=== PATIENT | male | born 1975 | race African-American/Black ===

== ENCOUNTER 2023-06-09 14:37 | Inpatient (IN) ==
[2023-06-09] MEDS: Propofol 10 mg/ml 100 ML BTL 1,000 MG/100 ML BTL IV SCH ×3 (16:45→22:30)
[2023-06-09] MEDS ORDERED: fentaNYL 100 mcg/2 ml 50 MCG/ML VIAL IV SLOW PU PRN ×2 (17:17→19:08)
[2023-06-09] MEDS ORDERED: fentaNYL 100 mcg/2 ml 50 MCG/ML VIAL ONE (17:17)
[2023-06-09] MEDS ORDERED: Piperacillin/Tazobac 3.375 BAG 3.375 GM/100 ML BAG IV ONE (17:40)
[2023-06-09] MEDS ORDERED: Vancomycin per Pharmacy 1 EA NOTE FOLLOW UP PRN (17:43)
[2023-06-09] MEDS ORDERED: Vancomycin 2,000 MG in NS 0.9% 500 ml BAG 500 ML IVPB ONE (18:00)
[2023-06-09] MEDS ORDERED: Propofol 10 mg/ml 100 ML BTL 1,000 MG/100 ML BTL IV SCH (18:00)
[2023-06-09] MEDS ORDERED: Norepinephrine 16MCG/ML BAGD5W 4,000 MCG/250 ML BAG IV SCH ×2 (18:00)
[2023-06-09] MEDS ORDERED: Zosyn per Pharmacy NOTE FOLLOW UP SCH (18:00)
[2023-06-09 19:50] LABS: Resp Rate 16
[2023-06-09 19:53] LABS: PCO2 Arterial 39 mmHg (35-45); PO2 Arterial 418 mmHg (80-100)
[2023-06-09 19:56] LABS: Urine Appearance Clear; Urine Bilirubin Negative (Negative); Urine Blood 1+ (Negative); Urine Color Yellow; Urine Glucose Negative (Negative); Urine Ketones Negative (Negative); Urine Nitrite Negative (Negative); Urine Protein 1+(30 mg/dL) (Negative); Urine Specific Gravity 1.013 (1.002-1.030); Urine Urobilinogen Negative (Negative)
[2023-06-09] MEDS ORDERED: fentaNYL INFUSION 50 mcg/mL VL 2,500 MCG/50 ML VIAL IV SCH (20:00)
[2023-06-09] MEDS: Pantoprazole VIAL 40 MG VIAL IV SCH (20:17)
[2023-06-09] MEDS: Enoxaparin 40 MG/0.4 ML SYR SUBCUT SCH (20:17)
[2023-06-09 20:31] LABS: Urine Benzodiazepine Screen Presumptive Positive (None Detect); Urine Cannabinoids Screen Presumptive Positive (None Detect); Urine Opiates Screen None Detected (None Detect)
[2023-06-09 20:38] LABS: Urine Bacteria Absent (Absent); Urine Red Blood Cell 1+(3-5/hpf) (Absent); Urine White Blood Cell Absent (Absent)
[2023-06-09 22:47] LABS: Hematocrit 27.6 % (38-53); Hemoglobin 8.5 g/dL (13.2-16.3); Mean Corpuscular Hemoglobin 25.3 pg (27-33); Mean Corpuscular Hgb Conc 30.8 g/dL (31-36); Mean Platelet Volume 7.4 fL (7.5-11.2); Platelet Count 447 10^3/uL (150-450); Red Blood Count 3.37 10^6/uL (4.06-5.63); White Blood Count 7.9 10^3/uL (3.6-10.2)
[2023-06-09 22:53] LABS: INR 1.14 (0.88-1.18)
[2023-06-09 22:58] LABS: Albumin 2.8 g/dL (3.2-5.2); Albumin/Globulin Ratio 0.9 (1-3); Calcium 9.4 mg/dL (8.6-10.3); Creatinine, Serum 0.88 mg/dL (0.67-1.17); Potassium 4.1 mmol/L (3.5-5.0); Total Bilirubin 0.2 mg/dL (0.2-1.0); Total Protein 5.8 g/dL (6.4-8.9); eGFR CKD-EPI 106.7 (>60)
[2023-06-09 23:13] LABS: ABS Lymphocytes 4.6 10^3/uL (1.0-4.8); ABS Monocytes 1.7 10^3/uL (0.0-1.1); ABS Neutrophils 1.5 10^3/uL (1.5-7.6); ABS Nucleated RBC 0.03 10^3/ul; Eosinophil % 0.5 %; Lymphocyte % 58.2 %; Nucleated Red Blood Cells % 0.3 /100 WBC (0.0-0.4)
[2023-06-09] MEDS: Chlorhexidine MOUTHWASH 0.12% 15 ML UDC SWISH SPIT SCH (23:31)
[2023-06-10] MEDS: ZOSYN 3.375 GM Q8H per EXTENDED INFUSION IV SCH ×3 (01:01→17:24)
[2023-06-10] MEDS: Chlorhexidine MOUTHWASH 0.12% 15 ML UDC SWISH SPIT SCH ×3 (01:11→11:55)
[2023-06-10] MEDS: Propofol 10 mg/ml 100 ML BTL 1,000 MG/100 ML BTL IV SCH ×3 (01:28→08:32)
[2023-06-10 04:37] LABS: ABS Lymphocytes 1.6 10^3/uL (1.0-4.8); ABS Monocytes 1.3 10^3/uL (0.0-1.1); ABS Neutrophils 1.4 10^3/uL (1.5-7.6); ABS Nucleated RBC 0.01 10^3/ul; Hematocrit 24.6 % (38-53); Hemoglobin 7.9 g/dL (13.2-16.3); Lymphocyte % 36.1 %; Mean Corpuscular Hemoglobin 25.6 pg (27-33); Mean Corpuscular Volume 80.2 fL (80-97); Mean Platelet Volume 7.5 fL (7.5-11.2); Nucleated Red Blood Cells % 0.3 /100 WBC (0.0-0.4); Platelet Count 414 10^3/uL (150-450); Red Blood Count 3.06 10^6/uL (4.06-5.63); Red Cell Distribution Width 17.2 % (12-17); White Blood Count 4.4 10^3/uL (3.6-10.2)
[2023-06-10 04:52] LABS: Albumin 2.6 g/dL (3.2-5.2); Albumin/Globulin Ratio 0.9 (1-3); Calcium 9.2 mg/dL (8.6-10.3); Creatinine, Serum 1.08 mg/dL (0.67-1.17); Magnesium 1.4 mg/dL (1.9-2.7); Potassium 4.2 mmol/L (3.5-5.0); Total Bilirubin 0.2 mg/dL (0.2-1.0); Total Protein 5.6 g/dL (6.4-8.9); eGFR CKD-EPI 85.2 (>60)
[2023-06-10] MEDS: Vancomycin 1,250 MG in NS 0.9% 250 ml 250 ML IVPB SCH ×3 (06:11→22:02)
[2023-06-10] MEDS ORDERED: Magnesium Sulf 4 GM/100 ML IV 4,000 MG/100 ML BAG IVPB ONE (08:36)
[2023-06-10] MEDS ORDERED: Succinylcholine 200 mg VIAL 20 mg/ml 10 ml VIAL (200 mg) ONE (09:45)
[2023-06-10] MEDS ORDERED: Rocuronium 50 mg VIAL 10 mg/ml 5 ml VIAL (50 mg) ONE (09:46)
[2023-06-10] MEDS ORDERED: fentaNYL 250 mcg/5 ml 50 MCG/ML 5 ml VIAL (250 MCG) ONE (09:47)
[2023-06-10] MEDS ORDERED: fentaNYL 100 mcg/2 ml 50 MCG/ML VIAL IV SLOW PU ONE ×5 (09:47→11:15)
[2023-06-10] MEDS ORDERED: Lidocaine 1% VIAL 10 MG/ML VIAL 30 ML ONE (10:46)
[2023-06-10] MEDS ORDERED: Iohexol 350 (CONTRAST) 500 ML MDV IV ONE (14:22)
[2023-06-10] MEDS: Enoxaparin 40 MG/0.4 ML SYR SUBCUT SCH (19:36)
[2023-06-10] MEDS: Pantoprazole VIAL 40 MG VIAL IV SCH (19:37)
[2023-06-10] MEDS: Albuterol HFA INHALER 8 gm MDI INH PRN (21:22)
[2023-06-10] MEDS ORDERED: Atropine 0.1 MG/ML 10 ml SYR (1 mg) ONE (22:15)
[2023-06-10] MEDS ORDERED: EPINEPHrine SYR 0.1MG/ML 10 ml SYRINGE IV ONE (22:15)
[2023-06-11] MEDS: ZOSYN 3.375 GM Q8H per EXTENDED INFUSION IV SCH ×2 (00:08→08:59)
[2023-06-11 05:08] LABS: Hematocrit 24.2 % (38-53); Hemoglobin 7.9 g/dL (13.2-16.3); Mean Corpuscular Hemoglobin 25.8 pg (27-33); Mean Corpuscular Hgb Conc 32.5 g/dL (31-36); Mean Corpuscular Volume 79.3 fL (80-97); Mean Platelet Volume 7.2 fL (7.5-11.2); Platelet Count 422 10^3/uL (150-450); Red Blood Count 3.05 10^6/uL (4.06-5.63); Red Cell Distribution Width 17.2 % (12-17); White Blood Count 4.4 10^3/uL (3.6-10.2)
[2023-06-11 05:23] LABS: Calcium 9.3 mg/dL (8.6-10.3); Creatinine, Serum 1.35 mg/dL (0.67-1.17); Potassium 3.7 mmol/L (3.5-5.0); eGFR CKD-EPI 65.2 (>60)
[2023-06-11] MEDS ORDERED: Vancomycin Trough Check NOTE FOLLOW UP ONE (05:30)
[2023-06-11 05:46] LABS: Vancomycin Trough 28.3 mcg/mL
[2023-06-11] MEDS: Vancomycin 1,250 MG in NS 0.9% 250 ml 250 ML IVPB SCH (06:21)
[2023-06-11 06:53] LABS: Creatinine, Serum 1.35 mg/dL (0.67-1.17); eGFR CKD-EPI 65.2 (>60)
[2023-06-11] MEDS: guaiFENesin 100 mg/5 ml LIQ unit dose cup PO PRN ×2 (10:14→19:16)
[2023-06-11] MEDS: Acetaminophen IV 1 GM/100ML 1,000 MG/100 ML BAG IV PRN ×2 (10:27→22:12)
[2023-06-11] MEDS: Polyethylene Glycol 3350 17 GM PACKET PO PRN (14:17)
[2023-06-11] MEDS: Pantoprazole VIAL 40 MG VIAL IV SCH (19:16)
[2023-06-11] MEDS: Enoxaparin 40 MG/0.4 ML SYR SUBCUT SCH (19:16)
[2023-06-12 05:41] LABS: ABS Lymphocytes 1.4 10^3/uL (1.0-4.8); ABS Monocytes 1.2 10^3/uL (0.0-1.1); ABS Neutrophils 3.5 10^3/uL (1.5-7.6); ABS Nucleated RBC 0.01 10^3/ul; Eosinophil % 0.6 %; Hematocrit 25.7 % (38-53); Hemoglobin 8.3 g/dL (13.2-16.3); Lymphocyte % 23.3 %; Mean Corpuscular Hemoglobin 25.5 pg (27-33); Mean Corpuscular Hgb Conc 32.4 g/dL (31-36); Mean Corpuscular Volume 78.7 fL (80-97); Mean Platelet Volume 7.1 fL (7.5-11.2); Nucleated Red Blood Cells % 0.2 /100 WBC (0.0-0.4); Platelet Count 463 10^3/uL (150-450); Red Blood Count 3.27 10^6/uL (4.06-5.63); Red Cell Distribution Width 17.7 % (12-17); White Blood Count 6.2 10^3/uL (3.6-10.2)
[2023-06-12 05:59] LABS: Creatinine, Serum 1.07 mg/dL (0.67-1.17); Magnesium 1.6 mg/dL (1.9-2.7); Potassium 3.7 mmol/L (3.5-5.0); eGFR CKD-EPI 86.1 (>60)
[2023-06-12] MEDS ORDERED: Vancomycin Random Level NOTE FOLLOW UP ONE (06:00)
[2023-06-12] MEDS: Acetaminophen IV 1 GM/100ML 1,000 MG/100 ML BAG IV PRN ×3 (06:03→23:59)
[2023-06-12] MEDS ORDERED: Magnesium Sulfate 2 gm BAG 2 GM/50 ML BAG IVPB ONE (07:20)
[2023-06-12] MEDS: Albuterol HFA INHALER 8 gm MDI INH PRN (08:36)
[2023-06-12] MEDS: Pantoprazole VIAL 40 MG VIAL IV SCH (20:12)
[2023-06-12] MEDS: Enoxaparin 40 MG/0.4 ML SYR SUBCUT SCH (20:12)
[2023-06-13] MEDS: guaiFENesin 100 mg/5 ml LIQ unit dose cup PO PRN ×2 (00:06→06:14)
[2023-06-13] MEDS ORDERED: Magnesium Sulfate IV 3 GM in NS 0.9% 100 ml BAG 100 ML IVPB ONE (07:22)
[2023-06-13 08:14] LABS: Phosphorus 3.3 mg/dL (2.5-5.0); Uric Acid 5.2 mg/dL (4.4-7.6)
[2023-06-13] MEDS: Acetaminophen IV 1 GM/100ML 1,000 MG/100 ML BAG IV PRN ×2 (10:13→23:15)
[2023-06-13] MEDS ORDERED: Ondansetron ODT 4 mg TAB 4 MG TAB PO PRN (10:38)
[2023-06-13] MEDS: SPIRIVA Respimat (tiotropium) 2.5 mcg/inh Inhaler INH SCH (13:26)
[2023-06-13] MEDS: Mometasone 220 MCG MDI INH SCH (19:22)
[2023-06-13] MEDS: Enoxaparin 40 MG/0.4 ML SYR SUBCUT SCH (21:36)
[2023-06-13] MEDS: Pantoprazole VIAL 40 MG VIAL IV SCH (21:37)
[2023-06-14] MEDS: guaiFENesin 100 mg/5 ml LIQ unit dose cup PO PRN ×2 (04:05→22:41)
[2023-06-14] MEDS: SPIRIVA Respimat (tiotropium) 2.5 mcg/inh Inhaler INH SCH (07:11)
[2023-06-14] MEDS: DULoxetine DR 60 mg CAP PO SCH (08:59)
[2023-06-14] MEDS: Acetaminophen IV 1 GM/100ML 1,000 MG/100 ML BAG IV PRN (10:46)
[2023-06-14] MEDS: Mometasone 220 MCG MDI INH SCH (19:38)
[2023-06-14] MEDS: Enoxaparin 40 MG/0.4 ML SYR SUBCUT SCH (20:04)
[2023-06-14] MEDS: Pantoprazole VIAL 40 MG VIAL IV SCH (20:05)
[2023-06-15 06:19] LABS: Hematocrit 27.3 % (38-53); Hemoglobin 8.6 g/dL (13.2-16.3); Mean Corpuscular Hemoglobin 24.8 pg (27-33); Mean Corpuscular Hgb Conc 31.6 g/dL (31-36); Mean Corpuscular Volume 78.5 fL (80-97); Platelet Count 567 10^3/uL (150-450); Red Blood Count 3.47 10^6/uL (4.06-5.63); Red Cell Distribution Width 17.8 % (12-17); White Blood Count 12.5 10^3/uL (3.6-10.2)
[2023-06-15 06:37] LABS: Calcium 10.7 mg/dL (8.6-10.3); Creatinine, Serum 0.86 mg/dL (0.67-1.17); Potassium 4.4 mmol/L (3.5-5.0); eGFR CKD-EPI 107.5 (>60)
[2023-06-15 06:57] LABS: ABS Basophils 0.1 10^3/uL (0.0-0.1); ABS Eosinophils 0.1 10^3/uL (0.0-0.5); ABS Lymphocytes 1.8 10^3/uL (1.0-4.8); ABS Monocytes 1.8 10^3/uL (0.0-1.1); ABS Neutrophils 8.8 10^3/uL (1.5-7.6); ABS Nucleated RBC 0.01 10^3/ul; Eosinophil % 0.5 %; Lymphocyte % 14.6 %; Nucleated Red Blood Cells % 0.1 /100 WBC (0.0-0.4)
[2023-06-15] MEDS: SPIRIVA Respimat (tiotropium) 2.5 mcg/inh Inhaler INH SCH (06:59)
[2023-06-15] MEDS: DULoxetine DR 60 mg CAP PO SCH (08:51)
[2023-06-15] MEDS: Mometasone 220 MCG MDI INH SCH (19:28)
[2023-06-15] MEDS: Pantoprazole VIAL 40 MG VIAL IV SCH (19:53)
[2023-06-15] MEDS: Enoxaparin 40 MG/0.4 ML SYR SUBCUT SCH (19:53)
[2023-06-16 06:26] LABS: Hematocrit 26.4 % (38-53); Hemoglobin 8.4 g/dL (13.2-16.3); Mean Corpuscular Hemoglobin 24.5 pg (27-33); Mean Corpuscular Hgb Conc 31.9 g/dL (31-36); Mean Corpuscular Volume 76.8 fL (80-97); Mean Platelet Volume 6.7 fL (7.5-11.2); Platelet Count 591 10^3/uL (150-450); Red Blood Count 3.43 10^6/uL (4.06-5.63); Red Cell Distribution Width 17.8 % (12-17); White Blood Count 12.8 10^3/uL (3.6-10.2)
[2023-06-16 06:45] LABS: Calcium 10.6 mg/dL (8.6-10.3); Creatinine, Serum 0.93 mg/dL (0.67-1.17); Magnesium 1.3 mg/dL (1.9-2.7); Potassium 4.6 mmol/L (3.5-5.0); eGFR CKD-EPI 101.9 (>60)
[2023-06-16] MEDS ORDERED: Magnesium Sulfate IV 3 GM in NS 0.9% 100 ml BAG 100 ML IVPB ONE (07:13)
[2023-06-16 07:56] LABS: ABS Eosinophils 0.1 10^3/uL (0.0-0.5); ABS Lymphocytes 2.1 10^3/uL (1.0-4.8); ABS Monocytes 1.8 10^3/uL (0.0-1.1); ABS Neutrophils 8.7 10^3/uL (1.5-7.6); Eosinophil % 0.5 %; Lymphocyte % 16.7 %
[2023-06-16] MEDS: SPIRIVA Respimat (tiotropium) 2.5 mcg/inh Inhaler INH SCH (08:01)
[2023-06-16] MEDS: DULoxetine DR 60 mg CAP PO SCH (09:37)
[2023-06-16] MEDS: Albuterol/Ipratropium NEB.SOL (2.5/0.5 MG) 3 ML NEB.SOLN INH PRN ×2 (11:03→19:46)
[2023-06-16] MEDS ORDERED: Cefepime ADVAN 1 GM in NS 0.9% 50 ML 50 ML IVPB SCH (11:30)
[2023-06-16] MEDS: Cefepime 1 GM in Dextrose 1 GM/50 ML BAG IV SCH ×2 (13:06→21:27)
[2023-06-16] MEDS: Azithromycin 500 mg/250 ml NS 500 MG/250 ML BAG IVPB SCH (13:46)
[2023-06-16] MEDS: Polyethylene Glycol 3350 17 GM PACKET PO PRN (16:13)
[2023-06-16] MEDS: Enoxaparin 40 MG/0.4 ML SYR SUBCUT SCH (19:29)
[2023-06-16] MEDS: Pantoprazole VIAL 40 MG VIAL IV SCH (19:29)
[2023-06-16] MEDS: Mometasone 220 MCG MDI INH SCH (19:44)
[2023-06-17] MEDS: Albuterol/Ipratropium NEB.SOL (2.5/0.5 MG) 3 ML NEB.SOLN INH PRN ×4 (02:44→19:28)
[2023-06-17 06:20] LABS: Hematocrit 26.9 % (38-53); Hemoglobin 8.8 g/dL (13.2-16.3); Mean Corpuscular Hemoglobin 25.3 pg (27-33); Mean Corpuscular Hgb Conc 32.7 g/dL (31-36); Mean Corpuscular Volume 77.6 fL (80-97); Platelet Count 635 10^3/uL (150-450); Red Blood Count 3.47 10^6/uL (4.06-5.63); Red Cell Distribution Width 17.8 % (12-17); White Blood Count 14.5 10^3/uL (3.6-10.2)
[2023-06-17 06:22] LABS: ABS Basophils 0.1 10^3/uL (0.0-0.1); ABS Eosinophils 0.1 10^3/uL (0.0-0.5); ABS Lymphocytes 2.2 10^3/uL (1.0-4.8); ABS Monocytes 1.9 10^3/uL (0.0-1.1); ABS Neutrophils 10.3 10^3/uL (1.5-7.6); ABS Nucleated RBC 0.01 10^3/ul; Eosinophil % 0.4 %; Lymphocyte % 15.2 %; Nucleated Red Blood Cells % 0.1 /100 WBC (0.0-0.4)
[2023-06-17 06:29] LABS: Calcium 10.8 mg/dL (8.6-10.3); Creatinine, Serum 0.85 mg/dL (0.67-1.17); Potassium 4.5 mmol/L (3.5-5.0); eGFR CKD-EPI 107.9 (>60)
[2023-06-17 08:01] LABS: Magnesium 1.6 mg/dL (1.9-2.7)
[2023-06-17] MEDS: SPIRIVA Respimat (tiotropium) 2.5 mcg/inh Inhaler INH SCH (08:02)
[2023-06-17] MEDS: Cefepime 1 GM in Dextrose 1 GM/50 ML BAG IV SCH ×2 (08:05→20:35)
[2023-06-17] MEDS: DULoxetine DR 60 mg CAP PO SCH (08:06)
[2023-06-17] MEDS: Azithromycin 500 mg/250 ml NS 500 MG/250 ML BAG IVPB SCH (11:02)
[2023-06-17] MEDS ORDERED: Magnesium Sulfate IV 3 GM in NS 0.9% 100 ml BAG 100 ML IVPB ONE (16:16)
[2023-06-17] MEDS: Mometasone 220 MCG MDI INH SCH (19:27)
[2023-06-17] MEDS: guaiFENesin 100 mg/5 ml LIQ unit dose cup PO PRN (20:31)
[2023-06-17] MEDS: Pantoprazole VIAL 40 MG VIAL IV SCH (20:31)
[2023-06-17] MEDS: Enoxaparin 40 MG/0.4 ML SYR SUBCUT SCH (20:31)
[2023-06-18] MEDS: Albuterol/Ipratropium NEB.SOL (2.5/0.5 MG) 3 ML NEB.SOLN INH PRN ×4 (04:11→22:55)
[2023-06-18 05:49] LABS: Hematocrit 26.1 % (38-53); Hemoglobin 8.5 g/dL (13.2-16.3); Mean Corpuscular Hgb Conc 32.6 g/dL (31-36); Mean Corpuscular Volume 76.7 fL (80-97); Mean Platelet Volume 6.7 fL (7.5-11.2); Platelet Count 647 10^3/uL (150-450); Red Blood Count 3.41 10^6/uL (4.06-5.63); Red Cell Distribution Width 17.3 % (12-17); White Blood Count 15.6 10^3/uL (3.6-10.2)
[2023-06-18 06:06] LABS: Albumin 3.1 g/dL (3.2-5.2); Albumin/Globulin Ratio 0.9 (1-3); Calcium 11.1 mg/dL (8.6-10.3); Creatinine, Serum 0.77 mg/dL (0.67-1.17); Globulin 3.6 g/dL (2-4); Magnesium 1.8 mg/dL (1.9-2.7); Phosphorus 3.4 mg/dL (2.5-5.0); Potassium 4.6 mmol/L (3.5-5.0); Total Bilirubin 0.2 mg/dL (0.2-1.0); Total Protein 6.7 g/dL (6.4-8.9); eGFR CKD-EPI 111.1 (>60)
[2023-06-18] MEDS: SPIRIVA Respimat (tiotropium) 2.5 mcg/inh Inhaler INH SCH (07:28)
[2023-06-18] MEDS ORDERED: Magnesium Sulfate 2 gm BAG 2 GM/50 ML BAG IVPB ONE (08:15)
[2023-06-18] MEDS: DULoxetine DR 60 mg CAP PO SCH (08:49)
[2023-06-18] MEDS: Polyethylene Glycol 3350 17 GM PACKET PO SCH (08:50)
[2023-06-18] MEDS: HYDROmorphone 1 MG/1 ML SYRINGE IV SLOW PU PRN ×3 (08:50→22:45)
[2023-06-18] MEDS: Cefepime 1 GM in Dextrose 1 GM/50 ML BAG IV SCH ×2 (09:03→20:46)
[2023-06-18] MEDS: Azithromycin 500 mg/250 ml NS 500 MG/250 ML BAG IVPB SCH (11:31)
[2023-06-18] MEDS: Mometasone 220 MCG MDI INH SCH (20:18)
[2023-06-18] MEDS: Pantoprazole VIAL 40 MG VIAL IV SCH (20:40)
[2023-06-18] MEDS: guaiFENesin 100 mg/5 ml LIQ unit dose cup PO PRN (20:40)
[2023-06-18] MEDS: Enoxaparin 40 MG/0.4 ML SYR SUBCUT SCH (20:40)
[2023-06-19] MEDS: HYDROmorphone 1 MG/1 ML SYRINGE IV SLOW PU PRN ×6 (02:04→20:30)
[2023-06-19 06:10] LABS: Albumin 3.3 g/dL (3.2-5.2); Albumin/Globulin Ratio 0.8 (1-3); Calcium 11.5 mg/dL (8.6-10.3); Creatinine, Serum 0.82 mg/dL (0.67-1.17); Globulin 3.9 g/dL (2-4); Magnesium 1.6 mg/dL (1.9-2.7); Phosphorus 3.1 mg/dL (2.5-5.0); Potassium 4.7 mmol/L (3.5-5.0); Total Bilirubin 0.2 mg/dL (0.2-1.0); Total Protein 7.2 g/dL (6.4-8.9)
[2023-06-19] MEDS: SPIRIVA Respimat (tiotropium) 2.5 mcg/inh Inhaler INH SCH (08:12)
[2023-06-19] MEDS: Albuterol/Ipratropium NEB.SOL (2.5/0.5 MG) 3 ML NEB.SOLN INH PRN ×2 (08:12→13:31)
[2023-06-19] MEDS: Cefepime 1 GM in Dextrose 1 GM/50 ML BAG IV SCH ×2 (10:36→20:37)
[2023-06-19] MEDS: DULoxetine DR 60 mg CAP PO SCH (10:39)
[2023-06-19] MEDS: Polyethylene Glycol 3350 17 GM PACKET PO SCH (10:39)
[2023-06-19] MEDS: Azithromycin 500 mg/250 ml NS 500 MG/250 ML BAG IVPB SCH (13:18)
[2023-06-19] MEDS ORDERED: Magnesium Sulfate IV 3 GM in NS 0.9% 100 ml BAG 100 ML IVPB ONE (13:33)
[2023-06-19 15:28] LABS: Hematocrit 26.4 % (38-53); Hemoglobin 8.2 g/dL (13.2-16.3); Mean Corpuscular Hemoglobin 24.1 pg (27-33); Mean Corpuscular Hgb Conc 31.1 g/dL (31-36); Mean Corpuscular Volume 77.5 fL (80-97); Mean Platelet Volume 6.7 fL (7.5-11.2); Platelet Count 674 10^3/uL (150-450); Red Blood Count 3.41 10^6/uL (4.06-5.63)
[2023-06-19 17:04] LABS: ABS Eosinophils 0.1 10^3/uL (0.0-0.5); ABS Lymphocytes 2.2 10^3/uL (1.0-4.8); ABS Monocytes 2.1 10^3/uL (0.0-1.1); ABS Neutrophils 14.5 10^3/uL (1.5-7.6); ABS Nucleated RBC 0.01 10^3/ul; Eosinophil % 0.7 %; Lymphocyte % 11.6 %; Nucleated Red Blood Cells % 0.1 /100 WBC (0.0-0.4)
[2023-06-19] MEDS: Mometasone 220 MCG MDI INH SCH (19:19)
[2023-06-19] MEDS: Enoxaparin 40 MG/0.4 ML SYR SUBCUT SCH (20:29)
[2023-06-19] MEDS: Pantoprazole VIAL 40 MG VIAL IV SCH (20:30)
[2023-06-19] MEDS ORDERED: Iohexol 300 (CONTRAST) 10 ML SDV IV ONE (21:32)
[2023-06-20] MEDS: HYDROmorphone 1 MG/1 ML SYRINGE IV SLOW PU PRN ×5 (00:55→20:22)
[2023-06-20] MEDS: Albuterol/Ipratropium NEB.SOL (2.5/0.5 MG) 3 ML NEB.SOLN INH PRN ×3 (02:19→23:40)
[2023-06-20] MEDS: SPIRIVA Respimat (tiotropium) 2.5 mcg/inh Inhaler INH SCH (08:39)
[2023-06-20] MEDS: Polyethylene Glycol 3350 17 GM PACKET PO SCH (10:34)
[2023-06-20] MEDS: Cefepime 1 GM in Dextrose 1 GM/50 ML BAG IV SCH (10:35)
[2023-06-20] MEDS: DULoxetine DR 60 mg CAP PO SCH (10:35)
[2023-06-20] MEDS: Azithromycin 500 mg/250 ml NS 500 MG/250 ML BAG IVPB SCH (12:30)
[2023-06-20] MEDS: Mometasone 220 MCG MDI INH SCH (19:36)
[2023-06-20] MEDS: Enoxaparin 40 MG/0.4 ML SYR SUBCUT SCH (20:21)
[2023-06-20] MEDS: Pantoprazole VIAL 40 MG VIAL IV SCH (20:22)
[2023-06-21] MEDS: HYDROmorphone 1 MG/1 ML SYRINGE IV SLOW PU PRN ×6 (01:36→21:34)
[2023-06-21 05:47] LABS: Hematocrit 26.5 % (38-53); Hemoglobin 8.6 g/dL (13.2-16.3); Mean Corpuscular Hemoglobin 24.9 pg (27-33); Mean Corpuscular Hgb Conc 32.4 g/dL (31-36); Mean Corpuscular Volume 76.9 fL (80-97); Mean Platelet Volume 6.2 fL (7.5-11.2); Platelet Count 701 10^3/uL (150-450); Red Blood Count 3.44 10^6/uL (4.06-5.63); Red Cell Distribution Width 17.9 % (12-17); White Blood Count 17.2 10^3/uL (3.6-10.2)
[2023-06-21 05:48] LABS: ABS Basophils 0.1 10^3/uL (0.0-0.1); ABS Eosinophils 0.2 10^3/uL (0.0-0.5); ABS Lymphocytes 2.2 10^3/uL (1.0-4.8); ABS Monocytes 1.7 10^3/uL (0.0-1.1); ABS Neutrophils 13.1 10^3/uL (1.5-7.6); ABS Nucleated RBC 0.01 10^3/ul; Eosinophil % 0.9 %; Lymphocyte % 12.9 %
[2023-06-21 06:12] LABS: Calcium 11.1 mg/dL (8.6-10.3); Creatinine, Serum 0.85 mg/dL (0.67-1.17); Magnesium 1.5 mg/dL (1.9-2.7); Potassium 4.8 mmol/L (3.5-5.0); Uric Acid 4.7 mg/dL (4.4-7.6); eGFR CKD-EPI 107.9 (>60)
[2023-06-21] MEDS: SPIRIVA Respimat (tiotropium) 2.5 mcg/inh Inhaler INH SCH (07:04)
[2023-06-21 07:46] LABS: Phosphorus 3.2 mg/dL (2.5-5.0)
[2023-06-21] MEDS ORDERED: Magnesium Sulf 4 GM/100 ML IV 4,000 MG/100 ML BAG IVPB ONE (08:00)
[2023-06-21] MEDS: DULoxetine DR 60 mg CAP PO SCH (08:15)
[2023-06-21] MEDS: Polyethylene Glycol 3350 17 GM PACKET PO SCH (08:17)
[2023-06-21] MEDS: Albuterol/Ipratropium NEB.SOL (2.5/0.5 MG) 3 ML NEB.SOLN INH PRN ×2 (16:43→22:06)
[2023-06-21] MEDS: Mometasone 220 MCG MDI INH SCH (19:14)
[2023-06-21] MEDS: Pantoprazole VIAL 40 MG VIAL IV SCH (20:13)
[2023-06-21] MEDS: Enoxaparin 40 MG/0.4 ML SYR SUBCUT SCH (20:13)
[2023-06-21] MEDS: oxyCODONE SR 15 mg TAB PO SCH (20:13)
[2023-06-22] MEDS: HYDROmorphone 1 MG/1 ML SYRINGE IV SLOW PU PRN ×4 (01:14→21:25)
[2023-06-22] MEDS: SPIRIVA Respimat (tiotropium) 2.5 mcg/inh Inhaler INH SCH (07:17)
[2023-06-22] MEDS: Albuterol/Ipratropium NEB.SOL (2.5/0.5 MG) 3 ML NEB.SOLN INH PRN ×2 (07:17→20:21)
[2023-06-22 07:43] LABS: ABS Basophils 0.1 10^3/uL (0.0-0.1); ABS Eosinophils 0.2 10^3/uL (0.0-0.5); ABS Lymphocytes 1.6 10^3/uL (1.0-4.8); ABS Monocytes 1.5 10^3/uL (0.0-1.1); ABS Neutrophils 14.8 10^3/uL (1.5-7.6); Eosinophil % 0.9 %; Hematocrit 25.5 % (38-53); Lymphocyte % 8.7 %; Mean Corpuscular Hemoglobin 24.2 pg (27-33); Mean Corpuscular Hgb Conc 31.4 g/dL (31-36); Mean Corpuscular Volume 77.1 fL (80-97); Mean Platelet Volume 6.2 fL (7.5-11.2); Platelet Count 680 10^3/uL (150-450); Red Blood Count 3.31 10^6/uL (4.06-5.63); Red Cell Distribution Width 18.1 % (12-17); White Blood Count 18.1 10^3/uL (3.6-10.2)
[2023-06-22] MEDS: Polyethylene Glycol 3350 17 GM PACKET PO SCH (08:49)
[2023-06-22] MEDS: oxyCODONE SR 15 mg TAB PO SCH (08:49)
[2023-06-22] MEDS: DULoxetine DR 60 mg CAP PO SCH (08:49)
[2023-06-22] MEDS ORDERED: Magnesium Sulf 4 GM/100 ML IV 4,000 MG/100 ML BAG IVPB ONE (09:13)
[2023-06-22] MEDS ORDERED: NS 0.9% 1000 ml BAG 1,000 ML IV SCH (15:00)
[2023-06-22] MEDS ORDERED: Zoledronic Acid 4 MG in NS 0.9% 100 ml BAG 100 ML IVPB ONE (15:13)
[2023-06-22] MEDS: NS 0.9% 1000 ml BAG 1,000 ML IV SCH ×2 (15:15→21:17)
[2023-06-22] MEDS: Mometasone 220 MCG MDI INH SCH (20:19)
[2023-06-22] MEDS ORDERED: oxyCODONE SR 15 mg TAB PO SCH (21:00)
[2023-06-22] MEDS: Pantoprazole VIAL 40 MG VIAL IV SCH (21:17)
[2023-06-22] MEDS: Enoxaparin 40 MG/0.4 ML SYR SUBCUT SCH (21:17)
[2023-06-22] MEDS: Morphine ER 30 mg TAB ** extended release PO SCH (21:18)
[2023-06-23] MEDS ORDERED: Lidocaine 1% VIAL 10 MG/ML VIAL 30 ML ONE ×2 (00:08→13:42)
[2023-06-23] MEDS: NS 0.9% 1000 ml BAG 1,000 ML IV SCH (02:59)
[2023-06-23 04:26] LABS: ABS Basophils 0.1 10^3/uL (0.0-0.1); ABS Eosinophils 0.2 10^3/uL (0.0-0.5); ABS Lymphocytes 1.8 10^3/uL (1.0-4.8); ABS Monocytes 1.1 10^3/uL (0.0-1.1); ABS Neutrophils 10.2 10^3/uL (1.5-7.6); ABS Nucleated RBC 0.01 10^3/ul; Eosinophil % 1.7 %; Hematocrit 23.5 % (38-53); Hemoglobin 7.6 g/dL (13.2-16.3); Lymphocyte % 13.1 %; Mean Corpuscular Hemoglobin 24.9 pg (27-33); Mean Corpuscular Hgb Conc 32.3 g/dL (31-36); Mean Corpuscular Volume 77.1 fL (80-97); Mean Platelet Volume 6.2 fL (7.5-11.2); Nucleated Red Blood Cells % 0.1 /100 WBC (0.0-0.4); Platelet Count 645 10^3/uL (150-450); Red Blood Count 3.05 10^6/uL (4.06-5.63); Red Cell Distribution Width 17.6 % (12-17); White Blood Count 13.4 10^3/uL (3.6-10.2)
[2023-06-23 04:43] LABS: Albumin 3.1 g/dL (3.2-5.2); Albumin/Globulin Ratio 0.9 (1-3); Calcium 10.6 mg/dL (8.6-10.3); Creatinine, Serum 0.84 mg/dL (0.67-1.17); Globulin 3.6 g/dL (2-4); Magnesium 1.9 mg/dL (1.9-2.7); Potassium 5.6 mmol/L (3.5-5.0); Total Bilirubin 0.1 mg/dL (0.2-1.0); Total Protein 6.7 g/dL (6.4-8.9); eGFR CKD-EPI 108.2 (>60)
[2023-06-23] MEDS: Albuterol/Ipratropium NEB.SOL (2.5/0.5 MG) 3 ML NEB.SOLN INH PRN (04:43)
[2023-06-23] MEDS: HYDROmorphone 1 MG/1 ML SYRINGE IV SLOW PU PRN ×4 (05:37→13:35)
[2023-06-23] MEDS: SPIRIVA Respimat (tiotropium) 2.5 mcg/inh Inhaler INH SCH (07:33)
[2023-06-23] MEDS: Morphine ER 30 mg TAB ** extended release PO SCH (08:46)
[2023-06-23] MEDS: DULoxetine DR 60 mg CAP PO SCH (08:46)
[2023-06-23] MEDS: Polyethylene Glycol 3350 17 GM PACKET PO SCH (08:47)
[2023-06-23 09:17] LABS: Rapid COVID-19 Molecular Undetected (Undetected)
[2023-06-23] MEDS ORDERED: HYDROmorphone 1 MG/1 ML SYRINGE IV SLOW PU ONE (14:21)
[2023-06-23 14:31] VITALS: BP 133/85
== END 2023-06-23 14:30 | disposition short-term general hospital (02) | DRG 143 ==
LOC: ICU 16:31 → SUATTDRO 16:31 → ICU 16:43 → MED 06-12 18:05 → ICU 06-22 23:53
PROVIDERS: ADMIT Student in an Organized Health Care Education/Training Program; ATTEND Internal Medicine